=== PATIENT | female | born 1990 | race Caucasian/White ===

== ENCOUNTER 2016-07-10 00:18 | Emergency (ER) | payer OTHER, MEDICAID ==
[~2016-07-10] VITALS: Ht 162.6 cm; Wt 45.9 kg
[2016-07-10] MEDS ORDERED: PERTUSS(ACELL),DIPH,TET VAC/PF 0.5 ML VIAL IM ONE ×2 (03:15)
[2016-07-10] MEDS ORDERED: LIDOCAINE HCL BUFFERED 1% W/EPI 1:100,000 20 ML VIAL INJ ONE (03:15)
[2016-07-10 04:04] VITALS: BP 126/71
== END 2016-07-10 04:15 | disposition home or self-care (01) ==
LOC: EMS 00:19
DX: S81.812A Laceration without foreign body, left lower leg, initial encounter (principal); F17.210 Nicotine dependence, cigarettes, uncomplicated; W45.8XXA Other foreign body or object entering through skin, initial encounter; Y93.89 Activity, other specified; Y92.89 Other specified places as the place of occurrence of the external cause; Y99.8 Other external cause status
CPT/HCPCS: 12001; 90471; 90715; 99283; J3490

== ENCOUNTER 2016-07-10 21:20 | Emergency (ER) | payer OTHER, MEDICAID ==
[~2016-07-10] VITALS: Ht 162.6 cm; Wt 47.7 kg
[2016-07-11 01:08] VITALS: BP 115/69
== END 2016-07-11 01:13 | disposition home or self-care (01) ==
LOC: EMS 21:23
DX: J40 Bronchitis, not specified as acute or chronic (principal); F17.210 Nicotine dependence, cigarettes, uncomplicated
CPT/HCPCS: 81025; 99283